=== PATIENT | male | born 1990 | race Caucasian/White ===

== ENCOUNTER 2018-12-23 20:55 | Emergency (ER) | payer OTHER ==
[~2018-12-23] VITALS: Ht 180.3 cm; Wt 70.3 kg
[2018-12-23 20:57] VITALS: BP 147/81
--- NOTE | 2018-12-23 20:59 | NUR ---
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
--- NOTE | 2018-12-23 21:21 | NUR ---
DR HERNÁNDEZ SPEAKING WITH PT.
[2018-12-23] MEDS ORDERED: IBUPROFEN 800 MG TAB PO ONE (21:25)
--- NOTE | 2018-12-23 21:40 | NUR ---
PT IN RADIOLOGY
--- NOTE | 2018-12-23 21:46 | NUR ---
PT RETUNRED FROM RADIOLOGY VIA WHEELCHAIR.
[2018-12-23 21:47] VITALS: BP 147/81
--- NOTE | 2018-12-23 21:47 | NUR ---
PATIENT EXAMINED BY DR. HERNÁNDEZ. PATIENT MEDICALLY CLEARED AND RELEASED IN CUSTODY IN STABLE CONDITION. ORIGINAL PRE-BOOK FORM GIVEN TO [employer].
== END 2018-12-23 21:47 ==
LOC: MED 20:55
DX: S13.4XXA Sprain of ligaments of cervical spine, initial encounter (principal); S60.041A Contusion of right ring finger without damage to nail, initial encounter; V89.2XXA Person injured in unspecified motor-vehicle accident, traffic, initial encounter; Y93.89 Activity, other specified; Y92.89 Other specified places as the place of occurrence of the external cause; Y99.8 Other external cause status
CPT/HCPCS: 72040; 73140; 99283

== ENCOUNTER 2023-05-23 11:49 | Emergency (ER) | payer OTHER ==
[~2023-05-23] VITALS: Ht 177.8 cm; Wt 81.6 kg
[2023-05-23 12:22] VITALS: BP 139/88; PULSE 87; RESP 16; TEMP 96.7; O2SAT 93
[2023-05-23] MEDS ORDERED: ACET-8905 PO (14:22)
[2023-05-23] MEDS ORDERED: BENZ20GE11 MM (14:22)
[2023-05-23] MEDS ORDERED: AMOX1TAB8 PO (14:22)
[2023-05-23] MEDS ORDERED: IBUP-2213 PO (14:22)
[2023-05-23 14:40] VITALS: BP 132/82; PULSE 88; RESP 16; TEMP 98; O2SAT 99
== END 2023-05-23 14:40 | disposition home or self-care (01) ==
LOC: MED 11:49
DX: K04.7 Periapical abscess without sinus (principal); Z79.899 Other long term (current) drug therapy
CPT/HCPCS: 99283

== ENCOUNTER 2023-06-12 18:57 | Emergency (ER) | payer OTHER ==
[~2023-06-12] VITALS: Ht 180.3 cm; Wt 95.3 kg
[~2023-06-12 18:57] MED LIST: ACET-8905 PO; AMOX1TAB8 PO; BENZ20GE11 MM; IBUP-2213 PO
[2023-06-12 19:00] VITALS: BP 126/78; PULSE 75; RESP 16; TEMP 97; O2SAT 99
[2023-06-12] MEDS ORDERED: ACET-8905 PO (19:16)
[2023-06-12] MEDS ORDERED: CLIN150C1 PO (19:16)
[2023-06-12] MEDS ORDERED: BENZ20GE11 MM (19:16)
[2023-06-12] MEDS ORDERED: IBUP-2213 PO (19:16)
== END 2023-06-12 19:44 | disposition home or self-care (01) ==
LOC: MED 18:57
DX: K04.7 Periapical abscess without sinus (principal); K02.9 Dental caries, unspecified; Z79.899 Other long term (current) drug therapy
CPT/HCPCS: 99283